=== PATIENT | male | born 1955 | race Caucasian/White ===

== ENCOUNTER → 2018-02-02 20:36 | Outpatient (REF) | payer MEDICAID, SELFPAY | LOC: NCHCN 20:36 | PROVIDERS: PCP Family Medicine; Visit Provider Family Medicine | DX: L97.519 Non-pressure chronic ulcer of other part of right foot with unspecified severity (principal) | CPT/HCPCS: 87077; 87070; 87186; 87205 ==

== ENCOUNTER 2018-10-16 12:42 | Outpatient (REF) | payer MEDICAID, SELFPAY ==
[2018-10-16 22:12] LABS: HGB 12.8 g/dL (13.5-17.5)
[2018-10-16 22:26] LABS: ALT 17 U/L (12-78); AST 14 U/L (15-37); Albumin 4.1 g/dL (3.4-5.0); Alkaline Phosphatase 76 U/L (46-116); Anion Gap 7.5 mmol/L (3-11); BUN 12 mg/dL (7-18); Bilirubin, Total 0.4 mg/dL (0.2-1.0); CO2 31.5 mmol/L (21.0-32.0); CREATININE 0.92 mg/dL (0.70-1.30); Calcium 9.3 mg/dL (8.5-10.1); Chloride 99 mmol/L (98-107); Cholesterol 155 mg/dL (50-200); Glucose 97 mg/dL (70-100); HDL Cholesterol 60 mg/dL (40-60); LDL CHOLESTEROL 68 mg/dL (<100); Potassium 4.3 mmol/L (3.5-5.1); Sodium 138 mmol/L (136-145); TSH (W/Ref FT4) 0.42 uIU/mL (0.358-3.74); Total Protein 7.5 g/dL (6.4-8.2); Triglyceride 157 mg/dL (30-150)
== END 2018-10-16 13:02 ==
LOC: NCHCN 12:42
PROVIDERS: PCP Family Medicine; Visit Provider Family Medicine
DX: E03.9 Hypothyroidism, unspecified (principal); E78.5 Hyperlipidemia, unspecified; I10 Essential (primary) hypertension; D64.9 Anemia, unspecified
CPT/HCPCS: 80053; 80061; 83721; 84443; 85014; 85018

== ENCOUNTER 2019-03-29 14:14 | Outpatient (REF) | payer MEDICAID, SELFPAY ==
[2019-03-29 19:20] LABS: TSH (W/Ref FT4) 0.46 uIU/mL (0.36-3.74)
[2019-04-01 10:52] LABS: PSA, Screening 0.1 ng/ml (0-4.5)
== END 2019-03-29 14:34 ==
LOC: NCHCN 14:14
PROVIDERS: PCP Family Medicine; Visit Provider Family Medicine
DX: E03.9 Hypothyroidism, unspecified (principal); Z12.5 Encounter for screening for malignant neoplasm of prostate; Z00.00 Encounter for general adult medical examination without abnormal findings
CPT/HCPCS: 84153; 84443

== ENCOUNTER 2020-01-30 11:48 | Outpatient (REF) | payer MEDICAID, SELFPAY ==
[2020-01-30 19:11] LABS: HCT 38.3 % (40.0-50.0); HGB 12.7 g/dL (13.5-17.5); MCH 33.3 pg (27.0-33.0); MCHC 33.2 % (32.0-36.0); MCV 100.5 fL (80-95); MPV 10.8 fL (8.0-11.0); Platelet Count 168 10^3/uL (130-400); RBC 3.81 10^6/uL (4.36-5.78); RDW 14.1 % (11.8-14.1); RDW-SD 52.3 fL; WBC 7.17 10^3/uL (4.4-10.8)
[2020-01-30 19:49] LABS: ALT 23 U/L (16-63); AST 17 U/L (15-37); Albumin 4.3 g/dL (3.4-5.0); Alkaline Phosphatase 72 U/L (46-116); Anion Gap 9.6 mmol/L (3-11); BUN 10 mg/dL (7-18); Bilirubin, Total 0.4 mg/dL (0.2-1.0); CO2 29.4 mmol/L (21.0-32.0); CREATININE 1.07 mg/dL (0.70-1.30); Calcium 9.4 mg/dL (8.5-10.1); Chloride 99 mmol/L (98-107); Glucose 105 mg/dL (74-106); Potassium 3.9 mmol/L (3.5-5.1); Sodium 138 mmol/L (136-145); TSH (W/Ref FT4) 1.03 uIU/mL (0.36-3.74); Total Protein 7.7 g/dL (6.4-8.2)
== END 2020-01-30 12:08 ==
LOC: NCHCN 11:48
PROVIDERS: PCP Family Medicine; Visit Provider Family Medicine
DX: E03.9 Hypothyroidism, unspecified (principal); E78.5 Hyperlipidemia, unspecified; I10 Essential (primary) hypertension; K86.1 Other chronic pancreatitis
CPT/HCPCS: 80053; 85027; 84443

== ENCOUNTER 2020-06-18 19:23 | Outpatient (REF) | payer MEDICAID, SELFPAY ==
[2020-06-18 18:45] LABS: HGB 10.9 g/dL (13.5-17.5); MCH 33.6 pg (27.0-33.0); MCHC 34.1 % (32.0-36.0); MCV 98.8 fL (80-95); MPV 10.5 fL (8.0-11.0); Platelet Count 145 10^3/uL (130-400); RBC 3.24 10^6/uL (4.36-5.78); RDW 12.9 % (11.8-14.1); RDW-SD 46.8 fL; WBC 6.83 10^3/uL (4.4-10.8)
[2020-06-18 18:54] LABS: Iron 87 ug/dL (65-175); Total Iron Binding Capacity 253 ug/dL (250-450); Transferrin Sat 34 % (20-55)
[2020-06-18 19:35] LABS: ALT 24 U/L (16-63); AST 15 U/L (15-37); Alkaline Phosphatase 70 U/L (46-116); Anion Gap 6.8 mmol/L (3-11); BUN 17 mg/dL (7-18); Bilirubin, Total 0.4 mg/dL (0.2-1.0); CO2 30.2 mmol/L (21.0-32.0); CREATININE 1.34 mg/dL (0.70-1.30); Calcium 9.2 mg/dL (8.5-10.1); Chloride 103 mmol/L (98-107); Estimated GFR 53.67 (mL/min/1.73m2); Ferritin 73 ng/mL (26-388); Glucose 92 mg/dL (74-106); Potassium 4.5 mmol/L (3.5-5.1); Sodium 140 mmol/L (136-145); TSH 1.64 uIU/mL (0.36-3.74); Total Protein 7.1 g/dL (6.4-8.2); Vitamin B12 1481 pg/mL (193-986)
[2020-06-18 19:57] LABS: FREE T4 1.34 ng/dL (0.76-1.46)
[2020-06-24 07:00] LABS: Codeine Negative ng/mL (Cutoff: 25); Dihydrocodeine Negative ng/mL (Cutoff: 25); Hydrocodone Negative ng/mL (Cutoff: 25); Hydromorphone Negative ng/mL (Cutoff: 25); Morphine Negative ng/mL (Cutoff: 25); Naloxone Negative ng/mL (Cutoff: 25); Norhydrocodone Negative ng/mL (Cutoff: 25); Noroxycodone 19585 ng/mL (Cutoff: 25); Noroxymorphone 1390 ng/mL (Cutoff: 25); Opiates Interpretation Positive.
== END 2020-06-18 19:43 ==
LOC: NCHCN 19:23
PROVIDERS: PCP Family Medicine; Visit Provider Family Medicine
DX: D64.9 Anemia, unspecified (principal)
CPT/HCPCS: 80053; 80361; 80362; 85027; 82607; 82728; 83540; 83550; 84439; 84443

== ENCOUNTER 2020-11-05 15:04 | Outpatient (REF) | payer MEDICAID, SELFPAY ==
[2020-11-05 17:00] LABS: ALT 19 U/L (16-63); AST 12 U/L (15-37); Albumin 3.9 g/dL (3.4-5.0); Alkaline Phosphatase 73 U/L (46-116); Anion Gap 7.6 mmol/L (3-11); BUN 10 mg/dL (7-18); Bilirubin, Total 0.4 mg/dL (0.2-1.0); CO2 31.4 mmol/L (21.0-32.0); Calcium 9.5 mg/dL (8.5-10.1); Chloride 103 mmol/L (98-107); Glucose 103 mg/dL (74-106); Potassium 4.7 mmol/L (3.5-5.1); Sodium 142 mmol/L (136-145); Total Protein 7.1 g/dL (6.4-8.2)
[2020-11-05 22:31] LABS: PSA, Screening 0.1 ng/mL (0.0-4.5)
== END 2020-11-05 15:05 | disposition home or self-care (01) ==
LOC: NCHCN 15:04
PROVIDERS: PCP Family Medicine; Visit Provider Family Medicine
DX: R14.0 Abdominal distension (gaseous) (principal); N28.9 Disorder of kidney and ureter, unspecified; Z12.5 Encounter for screening for malignant neoplasm of prostate
CPT/HCPCS: 80053; 84153

== ENCOUNTER 2021-03-18 21:15 | Outpatient (REF) | payer MEDICAID, SELFPAY ==
[2021-03-24 11:20] LABS: Codeine Negative ng/mL (Cutoff: 25); Dihydrocodeine Negative ng/mL (Cutoff: 25); Hydrocodone Negative ng/mL (Cutoff: 25); Hydromorphone Negative ng/mL (Cutoff: 25); Morphine Negative ng/mL (Cutoff: 25); Naloxone Negative ng/mL (Cutoff: 25); Norhydrocodone Negative ng/mL (Cutoff: 25); Noroxycodone 11440 ng/mL (Cutoff: 25); Noroxymorphone 745 ng/mL (Cutoff: 25); Opiates Interpretation Positive.
== END 2021-03-18 21:16 | disposition home or self-care (01) ==
LOC: NCHCN 21:15
PROVIDERS: PCP Family Medicine; Visit Provider Family Medicine
DX: Z51.81 Encounter for therapeutic drug level monitoring (principal)
CPT/HCPCS: 80361; 80362; 80365

== ENCOUNTER 2021-05-20 15:01 | Outpatient (REF) | payer MEDICAID, SELFPAY ==
[2021-05-20 19:16] LABS: HCT 32.5 % (40.0-50.0); HGB 10.9 g/dL (13.5-17.5); MCH 34.1 pg (27.0-33.0); MCHC 33.5 % (32.0-36.0); MCV 101.6 fL (80-95); Platelet Count 156 10^3/uL (130-400); RDW 13.1 % (11.8-14.1); RDW-SD 49.5 fL; WBC 6.02 10^3/uL (4.4-10.8)
[2021-05-20 19:26] LABS: ESR 16 mm/hr (0-20)
[2021-05-20 19:37] LABS: ALT 20 U/L (16-63); AST 17 U/L (15-37); Albumin 3.9 g/dL (3.4-5.0); Alkaline Phosphatase 66 U/L (46-116); BUN 19 mg/dL (7-18); Bilirubin, Total 0.4 mg/dL (0.2-1.0); C-Reactive Protein 1.58 mg/dL (0.0-0.3); CREATININE 1.1 mg/dL (0.70-1.30); Calcium 8.8 mg/dL (8.5-10.1); Chloride 104 mmol/L (98-107); FREE T4 1.32 ng/dL (0.76-1.46); Glucose 97 mg/dL (74-106); Potassium 4.3 mmol/L (3.5-5.1); Sodium 142 mmol/L (136-145); Total Protein 6.7 g/dL (6.4-8.2)
[2021-05-21 12:37] LABS: Vitamin B12 1381 pg/mL (193-986)
[2021-05-21 17:43] LABS: Folate 21.3 ng/mL (See Note)
[2021-05-23 11:11] LABS: HBs Antibody, Quant <3.1 mIU/mL (See Note); Hepatitis B Surface Ab Negative (See Note)
[2021-05-23 12:28] LABS: Hepatitis C Ab w Rflx HCV PCR Negative (Negative)
== END 2021-05-20 15:02 | disposition home or self-care (01) ==
LOC: NCHCN 15:01
PROVIDERS: PCP Family Medicine; Visit Provider Family Medicine
DX: D64.9 Anemia, unspecified (principal); N28.9 Disorder of kidney and ureter, unspecified; E03.9 Hypothyroidism, unspecified; I10 Essential (primary) hypertension; R79.89 Other specified abnormal findings of blood chemistry
CPT/HCPCS: 80053; 85027; 85652; 86706; 86803; 82607; 82746; 84439; 86140

== ENCOUNTER 2021-07-15 14:22 | Outpatient (REF) | payer MEDICARE, MEDICAID, SELFPAY ==
[2021-07-17 12:35] LABS: COVID-19 RT-PCR UVMMC Result Negative (Negative)
== END 2021-07-15 14:23 | disposition home or self-care (01) ==
LOC: NCHCN 14:22
PROVIDERS: PCP Family Medicine; Visit Provider Family Medicine
DX: Z20.822 Contact with and (suspected) exposure to COVID-19 (principal)
CPT/HCPCS: U0003

== ENCOUNTER 2022-05-20 14:15 | Outpatient (REF) | payer MEDICARE, MEDICAID, SELFPAY ==
[2022-05-20 15:55] LABS: HCT 33.6 % (40.0-50.0); HGB 11.4 g/dL (13.5-17.5); MCH 32.8 pg (27.0-33.0); MCHC 33.9 % (32.0-36.0); MCV 97 fL (80-95); MPV 10.7 fL (8.0-11.0); Platelet Count 147 10^3/uL (130-400); RBC 3.48 10^6/uL (4.36-5.78); RDW 13.4 % (11.8-14.1); WBC 6.65 10^3/uL (4.4-10.8)
[2022-05-20 15:58] LABS: ESR 14 mm/hr (0-20)
[2022-05-20 16:32] LABS: ALT 20 U/L (16-63); AST 18 U/L (15-37); Alkaline Phosphatase 81 U/L (46-116); Anion Gap 6.7 mmol/L (3-11); BUN 20 mg/dL (7-18); Bilirubin, Total 0.3 mg/dL (0.2-1.0); C-Reactive Protein 1.29 mg/dL (0.0-0.3); CO2 29.3 mmol/L (21.0-32.0); CREATININE 1.1 mg/dL (0.70-1.30); Calcium 8.9 mg/dL (8.5-10.1); Chloride 103 mmol/L (98-107); FREE T4 1.26 ng/dL (0.76-1.46); Glucose 142 mg/dL (74-106); Sodium 139 mmol/L (136-145); TSH 2.42 uIU/mL (0.36-3.74); Total Protein 7.2 g/dL (6.4-8.2)
[2022-05-23 09:55] LABS: PSA, Screening 0.1 ng/mL (<=4.5)
[2022-05-23 10:32] LABS: Amylase 35 U/L (25-115)
[2022-05-23 18:46] LABS: Lipase 35 U/L (73-393)
== END 2022-05-20 14:16 | disposition home or self-care (01) ==
LOC: NCHCN 14:15
PROVIDERS: PCP Family Medicine; Visit Provider Family Medicine
DX: D53.9 Nutritional anemia, unspecified (principal); R11.0 Nausea; K86.1 Other chronic pancreatitis; E03.9 Hypothyroidism, unspecified; N28.9 Disorder of kidney and ureter, unspecified; Z12.5 Encounter for screening for malignant neoplasm of prostate
CPT/HCPCS: 80053; 83690; 84153; 85027; 85652; 82150; 84439; 84443; 86140

== ENCOUNTER 2022-11-04 14:53 | Outpatient (REF) | payer MEDICARE, MEDICAID, SELFPAY ==
[2022-11-04 18:57] LABS: HCT 34.2 % (40.0-50.0); HGB 11.6 g/dL (13.5-17.5); MCH 33.4 pg (27.0-33.0); MCHC 33.9 % (32.0-36.0); MCV 99 fL (80-95); MPV 10.5 fL (8.0-11.0); Platelet Count 168 10^3/uL (130-400); RBC 3.47 10^6/uL (4.36-5.78); RDW 13.5 % (11.8-14.1); RDW-SD 48.3 fL; WBC 7.31 10^3/uL (4.4-10.8)
[2022-11-04 19:24] LABS: ALT 18 U/L (16-63); AST 17 U/L (15-37); Alkaline Phosphatase 76 U/L (46-116); Anion Gap 5.8 mmol/L (3-11); BUN 18 mg/dL (7-18); Bilirubin, Total 0.4 mg/dL (0.2-1.0); CO2 31.2 mmol/L (21.0-32.0); CREATININE 1.3 mg/dL (0.70-1.30); Calcium 9.2 mg/dL (8.5-10.1); Calculated LDL 57 mg/dL (<100); Chloride 103 mmol/L (98-107); Cholesterol 127 mg/dL (<200); Estimated GFR 60.59 (mL/min/1.73m2); Glucose 102 mg/dL (74-106); HDL Cholesterol 49 mg/dL (40-60); Sodium 140 mmol/L (136-145); TSH (W/Ref FT4) 2.72 uIU/mL (0.36-3.74); Total Protein 7.5 g/dL (6.4-8.2); Triglyceride 109 mg/dL (<150)
[2022-11-04 19:38] LABS: C-Reactive Protein 0.52 mg/dL (0.0-0.3)
[2022-11-07 08:57] LABS: PSA, Screening 0.1 ng/mL (<=4.5)
== END 2022-11-04 14:54 | disposition home or self-care (01) ==
LOC: NCHCN 14:53
PROVIDERS: PCP Family Medicine; Visit Provider Family Medicine
DX: D53.9 Nutritional anemia, unspecified (principal); K92.1 Melena
CPT/HCPCS: 80053; 80061; 84153; 85027; 83036; 84443; 86140

== ENCOUNTER → 2022-12-07 12:56 | Outpatient (BNVA) | payer MEDICARE, MEDICAID, SELFPAY | PROVIDERS: PCP Family Medicine; Referring Provider Family Medicine; Visit Provider Surgery | DX: D64.9 Anemia, unspecified (principal); K62.5 Hemorrhage of anus and rectum | CPT/HCPCS: 99213 ==

== ENCOUNTER 2023-01-19 10:39 | Day surgery (SDC) | payer MEDICARE, MEDICAID, SELFPAY ==
--- NOTE | 2023-01-18 17:56 | W.PREOPHP ---
Assessment and Plan Assessment and plan (1) Anemia: Status: Chronic Assessment and plan: We reviewed the plan for endoscopy today. We reviewed the risks and benefits of the procedure, as well as its role in diagnostics and treatment. I think he has a good understanding. We will proceed as planned. History of Present Illness History of Present Illness Chief Complaint: Anemia Narrative: He is 67 years old, and is referred for bidirectional endoscopy to help evaluate source of anemia. He is got a past medical history that is most significant for H. pylori gastritis that was treated. Considering his pathology report from 2014 which describes a tubular adenoma, I would have expected a colonoscopy in 2020. It looks like he was seen here in 2020, but was anemic at that point. He was scheduled to undergo endoscopy after that visit, but he canceled it and did not follow-up until today. His review of systems is most significant for some increased fatigue and lethargy that seem consistent with his anemia. He denies melena or hematochezia. He denies any other concerning gastrointestinal symptoms. He denies any family history of colon or rectal cancer. Since his last visit, there have been no major interval changes in the history or physical. PFSH All Active Problems Anemia (Chronic) Urinary frequency (Acute) Abdominal bloating (Acute) Insomnia (Acute) Chronic ulcer of right great toe (Acute) Chronic pancreatitis (Acute) PVD (peripheral vascular disease) with claudication (Acute) Smoker (Acute) Lumbar spinal stenosis (Acute) Constipation (Acute) Barretts esophagus (Acute) Testosterone deficiency (Acute) Depression (Chronic) BPH (benign prostatic hyperplasia) (Chronic) GERD (gastroesophageal reflux disease) (Chronic) Hypothyroid (Chronic) Hyperlipidemia (Acute) Hypertension (Chronic) Arthritis (Acute) Blood in stool (Acute) Nausea (Acute) Methadone use (Acute) Medical History Alcohol abuse, in remission Chronic abdominal pain Exposure to COVID-19 virus History of cellulitis Right shoulder pain Surgical History (Updated 01/19/23 @ 11:54 by Lexus Martin, RN) History of colonoscopy History of pancreatectomy S/P femoral-femoral bypass surgery f/u with PCP Dr. Miller Social History Smoking/Tobacco Use Status: Current every day Tobacco Type: cigarettes Smoking risk assessment performed?: Yes Alcohol Intake: former Drug use: Daily Substance use type: marijuana Housing: house Do you feel safe at home: Yes Do you feel safe in your relationship?: Yes Meds Allergies and Home Medications Allergies Allergy/AdvReac Type Severity Reaction Status Date / Time gabapentin Allergy Severe Verified 01/19/23 11:15 cephalexin monohydrate Allergy LE SWELLING Unverified 01/19/23 11:15 [From Keflex] simvastatin AdvReac LE EDEMA Unverified 01/19/23 11:15 varenicline tartrate AdvReac GI UPSET Unverified 01/19/23 11:15 [From Chantix] Home Medications Medication Instructions Recorded Confirmed Type AndroGel 12.5 mg/1.25 gram per 5 g topical DAILY 11/02/12 01/17/23 History pump actuation transdermal gel (testosterone) Aspirin Low-Strength 81 mg 81 mg PO DAILY 11/02/12 01/19/23 History chewable tablet (aspirin) Colace 50 mg capsule (docusate 50 mg PO DAILY 11/02/12 01/17/23 History sodium) Lunesta 3 mg tablet (eszopiclone) 3 mg PO HS 11/02/12 01/19/23 History Senokot 8.6 mg tablet (sennosides) 2 tab-cap PO DAILY 11/02/12 01/17/23 History methadone 10 mg tablet 10 mg PO 5X/DAY ##2 11/02/12 01/19/23 History [id number] 2 tab PO BID 01/10/13 01/17/23 History 16,800-40,000-70,000 unit capsule,delayed rel oxycodone 15 mg tablet 30 mg PO QID 01/10/13 01/19/23 History atenolol 50 mg tablet 50 mg PO DAILY 05/21/14 01/19/23 History citalopram 20 mg tablet 20 mg PO HS 05/21/14 01/19/23 History levothyroxine 175 mcg tablet 175 mcg PO DAILY 05/21/14 01/19/23 History (Synthroid) multivitamin with minerals (One 1 tab PO DAILY 05/21/14 01/19/23 History Daily Complete tablet) promethazine 25 mg tablet 25 mg PO Q6H PRN PRN 05/21/14 01/19/23 History buspirone 15 mg tablet 15 mg PO BID 12/05/16 01/19/23 History cholecalciferol (vitamin D3) 25 1,000 units PO DAILY 12/05/16 01/19/23 History mcg (1,000 unit) tablet cyanocobalamin (vitamin B-12) 1,000 mcg PO DAILY 12/05/16 01/19/23 History 1,000 mcg tablet (Vitamin B-12) furosemide 20 mg tablet 20 mg PO DAILY PRN PRN 12/05/16 01/19/23 History nicotine 1 ea transdermal DAILY 12/05/16 01/19/23 History 21mg/24hr-14mg/24hr-7mg/24hr daily transderm patches,sequentl nitroglycerin 0.4 mg sublingual 0.4 mg sublingual PRN PRN 12/05/16 01/17/23 History tablet (Nitrostat) rosuvastatin 5 mg tablet (Crestor) 5 mg PO QPM 12/05/16 01/17/23 History tamsulosin 0.4 mg capsule 0.4 mg PO DAILY 12/05/16 01/19/23 History terazosin 10 mg capsule 10 mg PO HS 12/05/16 01/19/23 History cilostazol 100 mg tablet 100 mg PO BID 11/06/20 01/19/23 History cyclobenzaprine 5 mg tablet 5 mg PO QHS 11/06/20 01/17/23 History mometasone 50 mcg/actuation nasal 2 spray intranasal DAILY 11/06/20 01/19/23 History spray (Nasonex) naloxone 4 mg/actuation nasal 4 mg intranasal Q2M PRN 11/06/20 01/17/23 History spray (Narcan) pantoprazole 40 mg tablet,delayed 40 mg PO DAILY 11/06/20 01/19/23 History release albuterol 90 mcg/actuation aerosol 90 mcg inhalation DIRECTED 11/21/22 01/19/23 History inhaler budesonide 32 mcg/actuation nasal 2 spray intranasal DAILY 11/21/22 01/17/23 History spray duloxetine 30 mg capsule,delayed 30 mg PO DAILY 11/21/22 01/19/23 History release (Cymbalta) losartan 50 mg tablet 50 mg PO DAILY 11/21/22 01/19/23 History nitric oxide gas 100 PPM for gas inhalation 11/21/22 12/07/22 History inhalation sucralfate 1 gram tablet (Carafate) 1 g PO QACHS 11/21/22 01/19/23 History Exam Const General: cooperative, healthy appearing and comfortable Orientation: awake and oriented x3 Eyes General: appearance normal, both eyes and all related structures Conjunctivae: conjunctivae normal Sclera: sclerae normal Resp Effort & Inspection: normal respiratory effort and able to speak in complete sentences Auscultation: clear to auscultation bilaterally Cardio Jugular venous pressure: no JVD Rate: regular rate Rhythm: regular rhythm Heart Sounds: S1 normal and S2 normal GI Inspection: non-distended Palpation: soft, no guarding, no hernias and nontender Auscultation: normal bowel sounds Skin General skin exam: normal turgor Neuro General: patient alert, patient awake and patient oriented x3 Cognition: normal cognition Extrem Right lower extremity: no edema Left lower extremity: no edema
--- NOTE | 2023-01-18 18:00 | W.PM.DSUDISC ---
Date of service: 01/19/23 Time of Service: 13:03 Discharge Plan Disposition Patient Disposition: Home Condition: Good Discharge Details Reason For Visit: EGD and colonoscopy Attending Provider: David Ontiveros Primary Care Provider: Johnna Miller V Home Meds and New Rx's Prescriptions: Continued sennosides [Senokot] 8.6 MG tablet 2 tab-cap PO DAILY methadone 10 MG tablet 10 mg PO 5X/DAY Qty: 2 Colace 50 MG capsule 50 mg PO DAILY aspirin [Aspirin Low-Strength] 81 MG tablet,chewable 81 mg PO DAILY testosterone [AndroGel] 150 GM gel in metered-dose pump 5 g Topical DAILY Patient Comments: 12/29/14 Pt states not using for a few days - ran out. PG eszopiclone [Lunesta] 3 MG tablet 3 mg PO HS cilostazol 100 mg tablet 100 mg PO BID cyclobenzaprine 5 mg tablet 5 mg PO QHS pantoprazole 40 mg tablet,delayed release (DR/EC) 40 mg PO DAILY mometasone [Nasonex] 50 mcg/actuation spray,non-aerosol 2 spray intranasal DAILY Rx Instructions: administer into each nostril naloxone [Narcan] 4 mg/actuation spray,non-aerosol 4 mg intranasal Q2M PRN Rx Instructions: spray 1 dose into ONE nostril; alternate nostrils w each dose until help arrives losartan 50 mg tablet 50 mg PO DAILY nitric oxide gas 100 PPM gas inhalation budesonide 32 mcg/actuation spray,non-aerosol 2 spray intranasal DAILY Rx Instructions: administer into each nostril albuterol 90 mcg/actuation aerosol 90 mcg inhalation DIRECTED duloxetine [Cymbalta] 30 mg capsule,delayed release(DR/EC) 30 mg PO DAILY sucralfate [Carafate] 1 gram tablet 1 g PO QACHS oxycodone 15 MG tablet 30 mg PO QID [id number] 1 EACH capsule,delayed release(DR/EC) 2 tab PO BID atenolol 50 MG tablet 50 mg PO DAILY citalopram 20 MG tablet 20 mg PO HS promethazine 25 MG tablet 25 mg PO Q6H PRN PRN One Daily Complete 1 EACH tablet 1 tab PO DAILY levothyroxine [Synthroid] 175 MCG tablet 175 mcg PO DAILY cyanocobalamin (vitamin B-12) [Vitamin B-12] 1,000 MCG tablet 1,000 mcg PO DAILY tamsulosin 0.4 MG capsule 0.4 mg PO DAILY nitroglycerin [Nitrostat] 0.4 MG tablet, sublingual 0.4 mg Sublingual PRN PRN furosemide 20 MG tablet 20 mg PO DAILY PRN PRN terazosin 10 MG capsule 10 mg PO HS buspirone 15 MG tablet 15 mg PO BID nicotine 1 EACH patch, TD daily, sequential 1 ea Transdermal DAILY rosuvastatin [Crestor] 5 MG tablet 5 mg PO QPM cholecalciferol (vitamin D3) 1,000 UNITS tablet 1,000 units PO DAILY Discontinued polyethylene glycol 3350 17 gram/dose powder 238 g PO ONCE Qty: 238 0RF Rx Instructions: take per colonoscopy instructions bisacodyl [Dulcolax (bisacodyl)] 5 mg tablet,delayed release (DR/EC) 5 mg PO ONCE Qty: 4 0RF Rx Instructions: take per colonoscopy instructions docusate sodium 100 mg capsule 100 mg PO TID Discharge Instructions Instructions: Arellano Esophagus (GEN) Additional Instructions: Julian, we were able to complete your upper endoscopy without any difficulty today. You do have a short segment of Arellano's esophagus. This is a result of chronic gastroesophageal reflux disease. The best treatment is proton pump inhibitors, such as pantoprazole, which you already take. I did perform some biopsies of this area, as well as other parts of your stomach and the small intestine. To the naked eye, however, I do not see anything that would explain anemia within the upper portion of your gastrointestinal tract. Unfortunately, the colon prep was inadequate. You had a combination of liquid and formed stool within the rectum and bottom portion of your colon. I was not able to safely advance the camera. Therefore, we had to stop. I will have my office reach out to you in the coming days in order to reschedule another colonoscopy. You will need to do an extended prep, with different medications in order to better prepare your large intestine for colonoscopy. 1. If tolerated, consume a soft, low fiber diet for 1-2 days. [address] not drive, drink alcohol, operate machinery, make critical decisions, or do activities that require coordination or balance for 24 hours. 3. Because air was put into your colon during the procedure, expelling air from your rectum (passing gas or farting) is normal. 4. You may not have a bowel movement for 1-3 days because of the colonoscopy prep. This is normal. 5. You may experience a sore throat for 24 to 48 hours. You may use throat lozenges or gargle with warm salt water to relieve the discomfort. 6. Because air was put into your stomach during the procedure, you may experience some belching. 7. Go directly to the emergency room if you notice any of the following: Develop chills (warm to touch), or if you have a thermometer and your temperature is above 101 Difficulty breathing or difficultly swallowing Persistent vomiting Severe abdominal pain, other than gas cramps Severe chest pain Black, tarry stools Any bleeding ? exceeding one tablespoon 8. Call your physician if the site where your intravenous was started becomes red, swollen, painful, and warm to touch. 9. Your physician has reviewed your pre-procedure medications. Please continue to take those medications as previously ordered. You will be given specific information/education regarding any changes to your medications before leaving. Activity:: Activity as Tolerated Diet:: As Tolerated Discharge Orders Discharge Orders: Discharge Order (Routine); Ordered 01/18/23 Ordered By: David Ontiveros DS: Diagnosis Discharge Diagnosis (1) Anemia: Status: Chronic Asessment and Plan: I will follow-up on pathology results; he will need to be rescheduled for another colonoscopy after extended prep
--- NOTE | 2023-01-18 18:03 | ENDO_ITS ---
Date of service: 01/19/23 Time of Service: 12:58 Endoscopy Report DATE OF PROCEDURE: 01/19/23 PRE-OP DIAGNOSIS: Anemia POST-OP DIAGNOSIS: other (Arellano's esophagus; incomplete colonoscopy) PROCEDURE: EGD and colonoscopy SURGEON: David Ontiveros ANESTHESIA TYPE: General:No Airway ESTIMATED BLOOD LOSS: 10 PATHOLOGY: other (Biopsies of duodenum, gastric antrum, gastric body, GE junction) COMPLICATIONS: None DISPOSITION: same day INDICATIONS: He is 67 years old, and is referred for bidirectional endoscopy to help evaluate source of anemia. He is got a past medical history that is most significant for H. pylori gastritis that was treated. Considering his pathology report from 2014 which describes a tubular adenoma, I would have expected a colonoscopy in 2020. It looks like he was seen here in 2020, but was anemic at that point. He was scheduled to undergo endoscopy after that visit, but he canceled it and did not follow-up until today. His review of systems is most significant for some increased fatigue and lethargy that seem consistent with his anemia. He denies melena or hematochezia. He denies any other concerning gastrointestinal symptoms. He denies any family history of colon or rectal cance PREP: Miralax/Dulcolax PROCEDURE START TIME: 12:35 PROCEDURE END TIME: 12:48 FINDINGS: Short segment Arellano's esophagus; incomplete colonoscopy PROCEDURE DESCRIPTION: After the initiation of monitored anesthetic care, and with the assistance of a bite block, I advanced a standard gastroscope through the mouth past the hypopharynx and into the esophagus.? Under the direct vision of the scope, I advanced down the esophagus towards the stomach.? There is irregularity of the Z-line noted approximately 43 cm from the incisors. GE junction was at 45 cm from the incisors. Once I entered the stomach, I performed a brief inspection, f ollowed by retroflexion towards the gastric cardia.? This appeared normal.? After that, I gently advanced the scope around the incisura angularis and examined the pylorus.? This also appeared normal.? Next, I advanced the scope through the pylorus into the duodenum.? The mucosa was pink and healthy appearing.? I perform random biopsies of the duodenum using cold forceps. There was minimal bleeding. I then brought the camera back up into the stomach and examine the entire lining of the stomach once again. I did not see any signs of polyps or tumors. There was no ulcerations. There was no active inflammation. I did perform random biopsies of the gastric antrum and gastric body in an effort to rule out Helicobacter pylori, and other gastric pathology that could contribute to anemia. Next, I brought the camera back up to the GE junction. As previously mentioned, there was a short segment of Arellano's esophagus. I did perform biopsies of the esophagus using cold forceps as well. There was minimal bleeding here. I advanced the camera back into the stomach, and emptied of all its gas. I then withdrew the camera along the length of the esophagus taking great care to examine it in its entirety. I did not see any other pathology. Next we moved Julian into the left lateral decubitus position. I began by performing an external anorectal exam.? Perineum and skin were normal, as was the anal verge.? There was no evidence of external hemorrhoids.? Next, I performed a digital rectal exam.? I did not appreciate any abnormal findings.? Next, I advanced a colonoscope into the rectal vault.? I performed retroflexion.? There was stool in the rectal vault. I was able to irrigate some of this clear. I did not see signs of internal hemorrhoids. I turned the camera forward facing, and began advancing through the rectal vault. As previously mentioned, there was a combination of liquid and solid stool all throughout the rectum. Despite several attempts at irrigation, I was only able to advance the camera about 20 cm just out of the rectum into the sigmoid colon. This was also filled with combination of solid and liquid stool. I was not able to irrigate this clear. I could not safely maintain the true lumen of the colon, therefore I decided to terminate the colonoscopy. Will need to reschedule Julian with a longer prep, and another attempt at colonoscopy.
--- NOTE | 2023-01-19 08:40 | ANES.PREOP_ITS ---
General Info Date of Service Date Performed: 01/19/23 Height: 5 ft 10 in Weight: 84.595 kg Body Mass Index (BMI): 26.7 Surgical Procedure: Operation Date: 01/19/23 13:05 Proposed Procedure Side Surgeon p Colonoscopy/Gastroscopy David Ontiveros MD Meds Allergies and Home Medications Allergies Allergy/AdvReac Type Severity Reaction Status Date / Time gabapentin Allergy Severe Verified 01/19/23 11:15 cephalexin monohydrate Allergy LE SWELLING Unverified 01/19/23 11:15 [From Keflex] simvastatin AdvReac LE EDEMA Unverified 01/19/23 11:15 varenicline tartrate AdvReac GI UPSET Unverified 01/19/23 11:15 [From Chantix] Home Medication Medication Instructions Recorded AndroGel 12.5 mg/1.25 gram per 5 g topical DAILY 11/02/12 pump actuation transdermal gel (testosterone) Aspirin Low-Strength 81 mg 81 mg PO DAILY 11/02/12 chewable tablet (aspirin) Colace 50 mg capsule (docusate 50 mg PO DAILY 11/02/12 sodium) Lunesta 3 mg tablet (eszopiclone) 3 mg PO HS 11/02/12 Senokot 8.6 mg tablet (sennosides) 2 tab-cap PO DAILY 11/02/12 methadone 10 mg tablet 10 mg PO 5X/DAY ##2 11/02/12 [id number] 2 tab PO BID 01/10/13 16,800-40,000-70,000 unit capsule,delayed rel oxycodone 15 mg tablet 30 mg PO QID 01/10/13 atenolol 50 mg tablet 50 mg PO DAILY 05/21/14 citalopram 20 mg tablet 20 mg PO HS 05/21/14 levothyroxine 175 mcg tablet 175 mcg PO DAILY 05/21/14 (Synthroid) multivitamin with minerals (One 1 tab PO DAILY 05/21/14 Daily Complete tablet) promethazine 25 mg tablet 25 mg PO Q6H PRN PRN 05/21/14 buspirone 15 mg tablet 15 mg PO BID 12/05/16 cholecalciferol (vitamin D3) 25 1,000 units PO DAILY 12/05/16 mcg (1,000 unit) tablet cyanocobalamin (vitamin B-12) 1,000 mcg PO DAILY 12/05/16 1,000 mcg tablet (Vitamin B-12) furosemide 20 mg tablet 20 mg PO DAILY PRN PRN 12/05/16 nicotine 1 ea transdermal DAILY 12/05/16 21mg/24hr-14mg/24hr-7mg/24hr daily transderm patches,sequentl nitroglycerin 0.4 mg sublingual 0.4 mg sublingual PRN PRN 12/05/16 tablet (Nitrostat) rosuvastatin 5 mg tablet (Crestor) 5 mg PO QPM 12/05/16 tamsulosin 0.4 mg capsule 0.4 mg PO DAILY 12/05/16 terazosin 10 mg capsule 10 mg PO HS 12/05/16 cilostazol 100 mg tablet 100 mg PO BID 11/06/20 cyclobenzaprine 5 mg tablet 5 mg PO QHS 11/06/20 mometasone 50 mcg/actuation nasal 2 spray intranasal DAILY 11/06/20 spray (Nasonex) naloxone 4 mg/actuation nasal 4 mg intranasal Q2M PRN 11/06/20 spray (Narcan) pantoprazole 40 mg tablet,delayed 40 mg PO DAILY 11/06/20 release albuterol 90 mcg/actuation aerosol 90 mcg inhalation DIRECTED 11/21/22 inhaler budesonide 32 mcg/actuation nasal 2 spray intranasal DAILY 11/21/22 spray duloxetine 30 mg capsule,delayed 30 mg PO DAILY 11/21/22 release (Cymbalta) losartan 50 mg tablet 50 mg PO DAILY 11/21/22 nitric oxide gas 100 PPM for gas inhalation 11/21/22 inhalation sucralfate 1 gram tablet (Carafate) 1 g PO QACHS 11/21/22 Current Visit Medications: Current Medications Generic Name Dose Route Start Last Admin Trade Name Freq PRN Reason Stop Dose Admin Hyoscyamine Sulfate 0.125 mg 01/18/23 18:04 Hyoscyamine 0.125 Mg Sl/Oral/Chew SL 02/17/23 18:03 DIRECTED PRN Ringer's Solution 1,000 mls @ 80 mls/hr 01/19/23 06:00 IV 02/09/23 23:59 [facility] IV Miscellaneous Supplies 1 each 01/19/23 06:00 Iv Access IV 02/09/23 23:59 DIRECTED [facility] Ondansetron HCl 4 mg 01/18/23 18:04 Ondansetron 4 Mg/2 Ml Vial IVP 02/17/23 18:03 Q4H PRN PRN Nausea / Vomiting Sodium Chloride 0 ml 01/19/23 06:00 Normal Saline Flush 10 Ml Syr IV 02/09/23 23:59 PRN PRN Sodium Chloride 0 ml 01/19/23 06:00 Normal Saline 10 Ml Vial IJ 02/09/23 23:59 DIRECTED PRN Sterile Water 0 ml 01/19/23 06:00 Water,Injection,Sterile 10 Ml Vial IJ 02/09/23 23:59 DIRECTED PRN PFSH Active Problems Active Problems: Problem Status Onset Code Anemia D64.9 Urinary frequency R35.0 Abdominal bloating R14.0 Insomnia G47.00 Chronic ulcer of right great toe L97.519 Chronic pancreatitis K86.1 PVD (peripheral vascular disease) with claudication I73.9 Smoker F17.200 Lumbar spinal stenosis M48.061 Constipation K59.00 Barretts esophagus K22.70 Testosterone deficiency E34.9 Depression F32.9 BPH (benign prostatic hyperplasia) N40.0 GERD (gastroesophageal reflux disease) K21.9 Hypothyroid E03.9 Hyperlipidemia E78.5 Hypertension I10 Arthritis M19.90 Blood in stool K92.1 Nausea R11.0 Methadone use F11.90 Medical History Medical History Alcohol abuse, in remission Chronic abdominal pain Exposure to COVID-19 virus History of cellulitis Right shoulder pain Surgical History Surgical History (Updated 01/19/23 @ 11:54 by Lexus Martin RN) History of colonoscopy History of pancreatectomy S/P femoral-femoral bypass surgery f/u with PCP Dr. Miller Tobacco Smoking/Tobacco Use Status: Current every day Tobacco Type: cigarettes Alcohol Alcohol Intake: former Substance Use Substance use: Daily Substance use type: marijuana Vital Signs and Lab Results Vital Signs Most Recent Vital Signs in EMR: Temp Pulse Resp BP Pulse Ox 36.1 C L 65 18 174/71 H 65 L 01/19/23 11:03 01/19/23 11:03 01/19/23 11:03 01/19/23 11:03 01/19/23 11:03 Lab Results Blood Type / Crossmatch: No Data to Display Complete Blood Count: No Data to Display Complete Metabolic Panel: No Data to Display Liver Function Panel: No Data to Display Coagulation Panel: No Data to Display Cardiac Panel: No Data to Display Arterial Blood Gas: No Data to Display Venous Blood Gas: No Data to Display Pancreas Panel: No Data to Display Thyroid Panel: No Data to Display Infectious Disease: No Data to Display Blood Cultures: No Data to Display Toxicology Panel: No Data to Display Imaging and Studies Imaging and Studies Study information below may be from another EMR and interpreted by another provider. Please see original notes in EMR for more complete details. Stress Test Summary: 04/27: no perfusion defects. EF 51%. RBBB Anesthesia Assessment and Plan Anesthesia History Personal History: No History of Anesthesia Complications Family History: No Family History of Anesthesia Complications Exercise Tolerance Exercise Tolerance: Metabolic Equivalents>4 Cardiac & Pulmonary Exam Cardiac Exam: Normal S1/S2 Heart Sounds Pulmonary Exam: Clear Bilateral Breath Sounds Implantable Cardiac Device Does patient have a Pacemaker or an ICD?: No Airway Exam Known Difficult Airway: No Mallampati Class: 4 Mouth Opening: Narrow (< 3cm) Thyromental Distance: Less than 3 cm Neck Range of Motion: Limited ROM and History of Cervical Fusion Neck Circumference: Normal Teeth Condition: Edentulous ASA Classification ASA Score: ASA 2 Emergency Case?: No NPO Status NPO Status: NPO Clears >2 hours, Solids >8 hours Anesthesia Plan Resuscitation Status: Full Code Anesthesia Technique: General Anesthesia Airway Planned: Natural Airway Monitors Used: Standard Monitors Preoperative Comments:: 67 yo male for EGD/colo. Sig PMHx: HTN, PVD (s/p fem-fem bypass), GERD, hypothyroid (on replacement), back pain, former EtOH, smoker tobacco, cannabis. [place] Anes: - [place]o, prop, natural airway, [place] [facility] [place] video grade 1.
[2023-01-19 11:03] VITALS: BP 174/71; PULSE 65; RESP 18; TEMP 36.1; O2SAT 65
[2023-01-19] MEDS: Lactated Ringers 1,000 ML 80 ML IV (12:02)
[2023-01-19 12:10] VITALS: BMI 26.7
--- NOTE | 2023-01-19 12:37 | STOM_PTH ---
PATIENT: Julian Lang LOC: [facility] U#:[id number] AGE/SX: 67/M ROOM: RE01/19/[address]: David Ontiveros MD : [id number] BED: DIS: 01/19/2023 SPEC #: [id number] RECD: 01/19/23 13:05 STATUS: ENOCH RE #: [id number] SIVA: 01/19/23 12:[address]: David Ontiveros DEPT: Surgical Specimen RECD BY: Sheeba Aquino ENTERED: 01/19/23 13:06 SP TYPE: STOMACH OTHR DR: Johnna Miller V Tissues: 1 - BIOPSY BOWEL 2 - STOMACH BIOPSY 3 - STOMACH BIOPSY G - ESOPHAGUS BIOPSY Procedures: GROSS AND MICRO LEVEL 4 Comments: [id number]
[2023-01-19 12:56] VITALS: BP 136/57; PULSE 53; RESP 13; TEMP 36.3; O2SAT 96
--- NOTE | 2023-01-19 13:16 | W.ANESPOSTOP ---
Postoperative Evaluation Date, Time and Location Date Performed: 01/19/23 Time Performed: 13:16 Patient Location: Day Surgery Unit Vital Signs Most Recent Imported Vital Signs: Most Recent Vital Signs Temp Pulse Resp BP Pulse Ox 36.3 C L 53 L 13 136/57 L 96 01/19/23 12:56 01/19/23 12:56 01/19/23 12:56 01/19/23 12:56 01/19/23 12:56 Pain Score Most Recent Pain Score: Most Recent Pain Score Pain Level 0 01/19/23 12:56 Assessment Mental Status: Awake (Alert & Oriented to Patient Baseline) Airway and Respiratory Function: Patent airway with normal (patient baseline) respiratory exam Cardiovascular Function: Hemodynamically Stable Hydration Status: Adequately Hydrated Nausea & Vomiting: No Nausea or Vomiting Pain: Pt. Denies Any Pain Peripheral Nerve Block: Patient did not receive a nerve block
[2023-01-19 13:33] VITALS: BP 181/77; PULSE 78; RESP 20; TEMP 36; O2SAT 95
== END 2023-01-19 13:38 | disposition home or self-care (01) ==
PROVIDERS: PCP Family Medicine; Visit Provider Surgery
PROC: (CPT 43239; principal; 2023-01-19 13:00)
DX: D64.9 Anemia, unspecified (principal); K22.70 Barrett's esophagus without dysplasia; K21.9 Gastro-esophageal reflux disease without esophagitis; F10.11 Alcohol abuse, in remission; K59.00 Constipation, unspecified; F17.210 Nicotine dependence, cigarettes, uncomplicated; Z53.8 Procedure and treatment not carried out for other reasons
CPT/HCPCS: 43239; G0104; 88305

== ENCOUNTER 2023-10-03 17:40 | Outpatient (REF) | payer MEDICARE, MEDICAID, SELFPAY ==
[2023-10-03 18:44] LABS: HCT 33.3 % (40.0-50.0); HGB 11.8 g/dL (13.5-17.5); MCH 34.6 pg (27.0-33.0); MCHC 35.4 % (32.0-36.0); MCV 98 fL (80-95); MPV 9.9 fL (8.0-11.0); Platelet Count 176 10^3/uL (130-400); RBC 3.41 10^6/uL (4.36-5.78); RDW 12.8 % (11.8-14.1); RDW-SD 46.1 fL; WBC 6.28 10^3/uL (4.4-10.8)
[2023-10-03 19:04] LABS: ALT 20 U/L (16-63); AST 16 U/L (15-37); Albumin 4.1 g/dL (3.4-5.0); Alkaline Phosphatase 76 U/L (46-116); Anion Gap 7.5 mmol/L (3-11); BUN 14 mg/dL (7-18); Bilirubin, Total 0.5 mg/dL (0.2-1.0); CO2 28.5 mmol/L (21.0-32.0); CREATININE 1.1 mg/dL (0.70-1.30); Chloride 97 mmol/L (98-107); Estimated GFR 73.58 (mL/min/1.73m2); Glucose 101 mg/dL (74-106); Potassium 4.7 mmol/L (3.5-5.1); Sodium 133 mmol/L (136-145); TSH (W/Ref FT4) 0.34 uIU/mL (0.36-3.74); Total Protein 6.9 g/dL (6.4-8.2)
[2023-10-04 09:17] LABS: Ferritin 108 ng/mL (26-388)
[2023-10-05 18:07] LABS: Iron 95 ug/dL (65-175); Total Iron Binding Capacity 290 ug/dL (250-450); Transferrin Sat 33 % (20-55)
== END 2023-10-03 17:41 | disposition home or self-care (01) ==
LOC: NCHCN 17:40
PROVIDERS: PCP Family Medicine; Visit Provider Family Medicine
DX: D46.9 Myelodysplastic syndrome, unspecified (principal); R73.03 Prediabetes; E03.9 Hypothyroidism, unspecified
CPT/HCPCS: 80053; 85027; 82728; 83036; 83540; 83550; 84439; 84443

== ENCOUNTER 2024-01-02 15:45 | Outpatient (REF) | payer MEDICARE, MEDICAID, SELFPAY ==
[2024-01-02 15:38] LABS: HCT 34.5 % (40.0-50.0); HGB 12.1 g/dL (13.5-17.5)
[2024-01-02 15:59] LABS: FREE T4 1.16 ng/dL (0.76-1.46)
== END 2024-01-02 15:46 | disposition home or self-care (01) ==
LOC: NCHCN 15:45
PROVIDERS: PCP Family Medicine; Visit Provider Family Medicine
DX: D64.9 Anemia, unspecified (principal); E03.9 Hypothyroidism, unspecified
CPT/HCPCS: 84439; 85014; 85018

== ENCOUNTER 2025-04-04 18:04 | Outpatient (REF) | payer MEDICARE, MEDICAID, SELFPAY ==
[2025-04-04 16:03] LABS: Abs Immature Grans 0.01 10^3/uL (0.0-0.06); HCT 36.7 % (40.0-50.0); HGB 12.9 g/dL (13.5-17.5); Immature Grans % 0.2 %; MCH 35.8 pg (27.0-33.0); MCHC 35.1 % (32.0-36.0); MCV 102 fL (80-95); MPV 9.9 fL (8.0-11.0); Platelet Count 205 10^3/uL (130-400); RBC 3.60 10^6/uL (4.36-5.78); RDW 13.2 % (11.8-14.1); RDW-SD 50.0 fL; WBC 5.97 10^3/uL (4.4-10.8)
[2025-04-04 16:20] LABS: Hemoglobin A1C 5.7 % (<5.7)
[2025-04-04 16:30] LABS: ALT 22 U/L (16-63); AST 25 U/L (15-37); Albumin 4.3 g/dL (3.4-5.0); Alkaline Phosphatase 69 U/L (46-116); Anion Gap 9.2 mmol/L (3-11); BUN 12 mg/dL (7-18); Bilirubin, Total 0.7 mg/dL (0.2-1.0); CO2 29.8 mmol/L (21.0-32.0); Calcium 9.5 mg/dL (8.5-10.1); Chloride 95 mmol/L (98-107); Estimated GFR 81.98 (mL/min/1.73m2); Glucose 95 mg/dL (74-106); Potassium 4.5 mmol/L (3.5-5.1); Sodium 134 mmol/L (136-145); TSH 14.75 uIU/mL (0.36-3.74); Total Protein 7.7 g/dL (6.4-8.2)
== END 2025-04-04 18:05 | disposition home or self-care (01) ==
LOC: NCHCN 18:04
PROVIDERS: PCP Family Medicine; Visit Provider Family Medicine
DX: E03.9 Hypothyroidism, unspecified (principal); D64.9 Anemia, unspecified; I10 Essential (primary) hypertension; R73.03 Prediabetes
CPT/HCPCS: 80053; 83036; 84439; 84443; 85025